=== PATIENT | male | born 1990 | race Caucasian/White ===

== ENCOUNTER 2021-06-12 13:50 | Outpatient (CLI) | payer OTHER | END 2021-06-12 13:51 | disposition home or self-care (01) | LOC: SCSMRI 13:50 | PROVIDERS: ATTEND Orthopaedic Surgery | DX: M84.362A Stress fracture, left tibia, initial encounter for fracture (principal) ==

== ENCOUNTER 2022-10-08 09:00 | Outpatient (CLI) | payer OTHER ==
[2022-10-08 11:37] LABS: #Basophils 0.1 10x3/uL (0.0-0.2); #Eosinphils 0.2 10x3/uL (0.0-0.5); #Monocytes 0.5 10x3/uL (0.0-1.1); #Neutrophils 2.6 10x3/uL (1.5-8.4); %Basophils 0.9 % (0.0-2.0); %Eosinophils 2.7 % (0.0-6.0); %Lymphocytes 40.5 % (18.0-47.0); %Monocytes 8.7 % (0.0-10.0); %Neutrophils 46.8 % (40.0-75.0); Hemoglobin 13.5 g/dL (13.5-17.5); Mean Corpuscular HGB CONC 31.5 g/dL (32.0-36.0); Mean Corpuscular Hemoglobin 22.8 pg (27.0-33.0); Mean Corpuscular Volume 72.5 fl (81.2-95.1); Mean Platelet Volume 11.5 fl (7.4-10.4); Platelet Count 355 10x3/uL (150-450); RBC Distribution Width 14.7 % (11.5-14.5); Red Blood Cell (RBC) Count 5.92 10x6/uL (4.32-5.72); White Blood Cell (WBC) Count 5.6 10x3/uL (3.5-10.5)
== END 2022-10-08 09:01 | disposition home or self-care (01) ==
LOC: LABBT 09:00
PROVIDERS: ATTEND Orthopaedic Surgery Hand Surgery
DX: Z01.812 Encounter for preprocedural laboratory examination (principal)
CPT/HCPCS: 85025

== ENCOUNTER 2022-10-12 08:57 | Day surgery (SDC) | payer OTHER ==
[2022-10-12] MEDS ORDERED: Bupivacaine PF 0.5% 30 ML VIAL ONE (10:10)
[2022-10-12] MEDS ORDERED: Bacitracin Zinc Ointment 30 gm TUBE ONE (10:10)
[2022-10-12] MEDS ORDERED: Neomycin-Polymyxin 1 ML AMP ONE (10:10)
[2022-10-12] MEDS ORDERED: FENTANYL 50 MCG/ML 1 ML VIAL ONE (10:23)
[2022-10-12] MEDS ORDERED: Midazolam HCl 2 mg/2 ml Vial ONE (10:23)
[2022-10-12] MEDS ORDERED: Ropivacaine 0.5% HCl/PF (150 MG/30 ML VIAL) ONE (10:23)
[2022-10-12] MEDS ORDERED: Sodium Chloride 0.9% 100 ML ONE (10:47)
[2022-10-12] MEDS ORDERED: CEFAZOLIN 2 GM VIAL ONE (10:47)
[2022-10-12] MEDS ORDERED: fentaNYL PF 100 MCG/2 ML SYRINGE ONE (10:48)
[2022-10-12] MEDS ORDERED: Ondansetron PF 4 MG/2 ML Vial ONE (11:18)
[2022-10-12] MEDS ORDERED: Dexamethasone 20 MG/5 ML VIAL ONE (11:18)
[2022-10-12] MEDS ORDERED: Ketorolac Tromethamine 30 MG/ML VIAL ONE (11:18)
[2022-10-12] MEDS ORDERED: PROPOFOL 200 MG/20 ML VIAL ONE (11:18)
== END 2022-10-12 14:49 | disposition home or self-care (01) ==
LOC: SDC 08:57
PROVIDERS: ATTEND Orthopaedic Surgery Hand Surgery
DX: S62.317A Displaced fracture of base of fifth metacarpal bone, left hand, initial encounter for closed fracture (principal); F17.290 Nicotine dependence, other tobacco product, uncomplicated; Z86.11 Personal history of tuberculosis; Z79.899 Other long term (current) drug therapy; W21.89XA Striking against or struck by other sports equipment, initial encounter; M94.8X4 Other specified disorders of cartilage, hand
CPT/HCPCS: C1713; C1894; J1100; J1885; J2250; J2405; J2704; J2795; J3010; J3490; S0020

== ENCOUNTER 2023-01-18 07:41 | Day surgery (SDC) | payer OTHER ==
[2023-01-14 14:44] VITALS: BMI 33.7
[2023-01-18] MEDS ORDERED: Lidocaine 1% MPF 2 ML VIAL ONE (07:58)
[2023-01-18] MEDS ORDERED: CEFAZOLIN 2 GM VIAL ONE (07:58)
[2023-01-18] MEDS ORDERED: Sodium Chloride 0.9% 100 ML ONE (07:58)
[2023-01-18] MEDS ORDERED: Bupivacaine PF 0.5% 30 ML VIAL ONE (09:16)
[2023-01-18] MEDS ORDERED: Bacitracin Zinc Ointment 30 gm TUBE ONE (09:16)
[2023-01-18] MEDS ORDERED: Neomycin-Polymyxin 1 ML AMP ONE (09:16)
[2023-01-18] MEDS ORDERED: Midazolam HCl 2 mg/2 ml Vial ONE (09:44)
[2023-01-18] MEDS ORDERED: Lidocaine 1% PF 5 ML VIAL ONE (10:12)
[2023-01-18] MEDS ORDERED: PROPOFOL 200 MG/20 ML VIAL ONE (10:12)
[2023-01-18] MEDS ORDERED: Fentanyl 100 MCG/2 ML VIAL ONE (11:00)
[2023-01-18] MEDS ORDERED: Ketorolac Tromethamine 30 MG/ML VIAL ONE (11:11)
[2023-01-18] MEDS ORDERED: fentaNYL PF 100 MCG/2 ML SYRINGE ONE (11:27)
[2023-01-18] MEDS ORDERED: HYDROcodone/Acetaminophen 5/325 mg Tablet ONE (12:23)
== END 2023-01-18 12:34 | disposition home or self-care (01) ==
LOC: SDC 07:41
PROVIDERS: ATTEND Orthopaedic Surgery Hand Surgery
PROC: 0PP Upper Bones, Removal (ICD-10-PCS; principal; 2023-01-18)
DX: T84.84XA Pain due to internal orthopedic prosthetic devices, implants and grafts, initial encounter (principal); F17.290 Nicotine dependence, other tobacco product, uncomplicated; Z79.899 Other long term (current) drug therapy; Z88.8 Allergy status to other drugs, medicaments and biological substances; Y79.3 Surgical instruments, materials and orthopedic devices (including sutures) associated with adverse incidents
CPT/HCPCS: J1885; J2250; J2704; J3010; J3490; S0020